=== PATIENT | female | born 1990 | race American Indian/Alaskan Native ===

== ENCOUNTER 2020-05-27 16:54 | Emergency (ER) | payer MEDICAID ==
--- NOTE | 2020-05-27 17:35 | Emergency Department Report ---
ED Shortness of Breath HPI - General Chief Complaint: Dyspnea/Respdistress Stated Complaint: SOB Time Seen by Provider: 05/27/20 17:22 Source: patient Mode of arrival: Stretcher Limitations: No Limitations - History of Present Illness Initial Comments: 29-year-old female presents to the ED with shortness of breath. Patient states she went outside and began coughing, wheezing and feeling as if her throat was closing. Patient states she is unsure if it is due to the pollen. Patient denies any previous pollen allergies, however she states since she has had kids she has developed multiple allergies, including to amoxicillin, sesame, and citric acid. Patient states she went back inside and took Claritin and then called EMS. Upon EMS arrival, they reported patient had O2 sats of 88% on room air. Patient states she was given a nebulizer treatment and transported to the ED. Patient states she is currently feeling much better following the breathing treatment, does not feel as if her throat is closing currently. Patient denies any history of asthma. Patient denies any recent fever, persistent cough, loss of smell or taste, leg pain or swelling, chest pain, or any known exposure to anyone who has tested positive for COVID-19. Complaint: shortness of breath -: This afternoon Severity: moderate Consistency: now resolved Improves With: bronchodilators Treatments Prior to Arrival: bronchodilator - Related Data Home Oxygen Therapy: No Previous Rx's Medication Instructions Recorded Last Taken Type predniSONE [Deltasone] 50 mg PO QDAY #5 tab 05/27/20 Unknown Rx Allergies Allergy/AdvReac Type Severity Reaction Status Date / Time amoxicillin Allergy Unknown Verified 05/27/20 17:11 ED Review of Systems ROS: Stated complaint: SOB Other details as noted in HPI Comment: All other systems reviewed and negative Constitutional: denies: fever Respiratory: shortness of breath, wheezing Cardiovascular: denies: chest pain Gastrointestinal: denies: nausea, vomiting Musculoskeletal: other (Denies leg pain or swelling) Skin: denies: rash ED Past Medical Hx - Social History Smoking Status: Current Every Day Smoker Substance Use Type: Alcohol - Medications Home Medications: Home Medications Medication Instructions Recorded Confirmed Last Taken Type predniSONE [Deltasone] 50 mg PO QDAY #5 tab 05/27/20 Unknown Rx ED Physical Exam - General Limitations: No Limitations General appearance: alert, in no apparent distress - Head Head exam: Present: atraumatic, normocephalic - Eye Eye exam: Present: normal appearance, EOMI - ENT ENT exam: Present: mucous membranes moist - Neck Neck exam: Present: normal inspection - Respiratory Respiratory exam: Present: normal lung sounds bilaterally. Absent: respiratory distress, wheezes, stridor - Cardiovascular Cardiovascular Exam: Present: regular rate, normal rhythm - GI/Abdominal GI/Abdominal exam: Present: soft. Absent: distended, tenderness - Extremities Exam Extremities exam: Present: normal inspection - Neurological Exam Neurological exam: Present: alert, oriented X3 - Psychiatric Psychiatric exam: Present: normal affect, normal mood - Skin Skin exam: Present: warm, dry, intact, normal color. Absent: rash ED Course Vital Signs 05/27/20 05/27/20 05/27/20 17:07 18:11 18:17 Temperature 97.9 F Pulse Rate 86 70 Respiratory 16 18 18 Rate Blood Pressure 141/91 Blood Pressure 138/81 [Right] O2 Sat by Pulse 100 100 Oximetry ED Medical Decision Making - Lab Data Result diagrams: 05/27/20 17:39 05/27/20 17:39 - Radiology Data Radiology results: report reviewed, image reviewed - Medical Decision Making 29-year-old female presents to ED with possible allergic reaction. Initially patient thought symptoms were possibly secondary to a new pollen allergy. However, patient now reports that she actually drank cranberry juice and grapefruit juice this morning. She reports vomiting after drinking cranberry juice. Patient reports allergy to citric acid. Patient stable here in ED. O2 sats 100% on room air. Chest x-ray is unremarkable. Patient is in no respiratory distress at this time. She has been given Benadryl, Pepcid, and Solu-Medrol. Patient feels comfortable for discharge at this time. Prescription for prednisone will be given. Outpatient follow-up advised, return precautions given. - Differential Diagnosis Allergic reaction Critical care attestation.: If time is entered above; I have spent that time in minutes in the direct care of this critically ill patient, excluding procedure time. ED Disposition Clinical Impression: Allergic reaction Disposition: DC-01 TO HOME OR SELFCARE Is pt being admited?: No Condition: Stable Instructions: Allergies, Adult, [id number] Prescriptions: predniSONE [Deltasone] 50 mg PO QDAY #5 tab Referrals: PRIMARY CARE, [Primary Care Provider] - 3-5 Days [facility] [Provider Group] - 3-5 Days Time of Disposition: 18:57
[2020-05-27] MEDS ORDERED: diphenhydrAMINE 50 MG/ML VIAL IV ONE (17:37)
[2020-05-27] MEDS ORDERED: methylPREDNISolone Sod Succinate 125 MG/2 ML INJ IV ONE (17:37)
[2020-05-27] MEDS ORDERED: FAMOTIDINE 20 MG/2 ML INJ IV ONE (17:37)
--- NOTE | 2020-05-27 17:59 | XRay Report ---
CHEST 2 VIEWS INDICATION / CLINICAL INFORMATION: SOB. COMPARISON: None available. FINDINGS: SUPPORT DEVICES: None. HEART / MEDIASTINUM: No significant abnormality. LUNGS / PLEURA: No significant pulmonary or pleural abnormality. No pneumothorax. ADDITIONAL FINDINGS: No significant additional findings. IMPRESSION: No acute cardiopulmonary abnormality. Signer Name: Ankur Cee MD Signed: 05/27/2020 5:55 PM Workstation Name: [id number]
[2020-05-27 18:11] LABS: BUN/Creatinine Ratio 10; Blood Urea Nitrogen 10 mg/dL (7-17); Calcium 8.4 mg/dL (8.4-10.2); Hemolysis Index 17
[2020-05-27 18:18] LABS: Basophils % (Auto) 0.1 % (0.0-1.8); Eosinophils # (Auto) 0.1 K/mm3 (0.0-0.4); Eosinophils % (Auto) 1.5 % (0.0-4.3); Hematocrit 35.1 % (30.3-42.9); Hemoglobin 11.5 gm/dl (10.1-14.3); Mean Corpuscular HGB Conc 33 % (30-34); Mean Corpuscular Volume 83 fl (79-97); Monocytes # (Auto) 0.3 K/mm3 (0.0-0.8); Monocytes % (Auto) 5.5 % (0.0-7.3); Platelet Count 223 K/mm3 (140-440); Red Blood Count 4.21 M/mm3 (3.65-5.03); Red Cell Distribution Width 15.3 % (13.2-15.2)
[2020-05-27 19:18] VITALS: BP 138/90
== END 2020-05-27 19:17 | disposition home or self-care (01) ==
LOC: ED 16:54
DX: T78.40XA Allergy, unspecified, initial encounter (principal); Z79.899 Other long term (current) drug therapy; F17.200 Nicotine dependence, unspecified, uncomplicated; Z88.1 Allergy status to other antibiotic agents
CPT/HCPCS: 36415; 71046; 80048; 85025; 96374; 96375; 99284; J1200; J2930